=== PATIENT | female | born 1960 | race Two or more races ===

== ENCOUNTER 2024-07-05 18:31 | Emergency (ER) | payer OTHER ==
[~2024-07-05] VITALS: Ht 162.6 cm; Wt 80.2 kg
--- NOTE | 2024-07-05 18:46 | ECG ---
[facility] Test Date: 2024-07-05 Test Time: 18:44:26 Pat Name: JANETH CROW Department: ER Room: Gender: F [employer] Faculty Member: REBECCA : 1960 Requested By: PANTERA PRUETT Order Number: [id number] Reading MD: Feliciano Moreno Measurements Intervals [place] Rate: 103 P: 53 [place]: 169 QRS: -39 QRSD: 85 T: 58 QT: 338 QTc: 443 Interpretive Statements Sinus tachycardia Probable left atrial enlargement Left axis deviation Abnormal R-wave progression, late transition Baseline wander in lead(s) V4 Electronically Signed On 07-07-2024 22:10:34 PST by Feliciano Moreno Please click the below link to view image of tracing.
[2024-07-05] MEDS: NITROGLYCERIN 0.4 MG SL TAB SL ONE (19:10)
--- NOTE | 2024-07-05 19:10 | ED.PDOC ---
HPI Comments Vamsi: HPI: Poor Historian. 64 y/o F, presents to the ED for CC of hyperglycemia. Patient states, that she went to 's walk-in clinic for a medication refill for Metformin and Losartan; was referred to the ED for further evaluation and to rule out DKA. Patient's daughter comments on, medication refill not being granted. Patient's blood sugar read at 290 on the glucometer and her blood pressure read at 222/96 on the right and 197/84 on the left. Patient denies any other symptoms or modifying factors at this time. Initial Vital Signs: Temp : 99.5 BP: 222/96 R 197/84 L HR: 111 RR:18 SpO2: 96 Past Medical History: DM, HTN, UTI Past Surgical History: FX BONES CHEST Social History: Denies smoking, ETOH, or drug use. Medications: Allergies: NKDA REVIEW OF SYSTEMS: CONSTITUTIONAL: Denies acute: fever, diaphoresis, chills, generalized weakness. HEAD: Denies acute: headache, photophobia Eyes: Denies acute: Double vision, vision loss, eye pain, eye discharge. EARS: Denies acute: tinnitus, hearing loss, ear discharge, ear pain, THROAT: Denies acute: sore throat, swelling, difficulty swallowing , pain with swallowing, change in voice. NECK: Denies acute: neck pain, neck swelling, stiff neck. HEART: Denies acute : chest pain, palpitations, LUNGS: Denies acute: SOB, wheezing, cough, hemoptysis ABDOMEN: Denies acute: abdominal pain, Nausea, Vomiting, diarrhea, melena , hematemesis, hematochezia SKIN: Denies acute: rash, redness, lesions, itchiness. EXTREMITIES: Denies acute: calf pain, numbness, tingling, weakness, denies pain in extremity. Denies acute: Low back pain. Neuro: Denies acute: focal neurological deficit, motor or sensory focal neurological deficit, tremors, seizure like activity, confusion, dizziness, change in mental status, loss of bowel or bladder function, cauda equina like symptoms. : Denies acute: dysuria, hematuria, flank pain, increase in urinary frequency. PSYCH: Denies acute: hallucination, suicidal ideation, homicidal ideation. FEMALE: Denies acute: abnormal vaginal bleeding, foul odor, unusual discharge. PHYSICAL EXAM: General: no acute distress, awake and alert. Head: normocephalic, atraumatic. Neck: supple, trachea is midline, no swelling. Throat: Normal phonation. Eyes:, no erythema, no purulent discharge, no proptosis, no icterus. Heart: Slightly tachycardic, no significant murmur appreciated. Lungs: no apparent respiratory distress, Able to speak in full sentences. No wheezing, no rhonchi, no crackles. No stridors Clear to auscultation bilaterally. Abdomen: non tender to palpation, non distended, soft, no guarding, no rebound, + bowel sounds. Neuro: Awake, Alert, oriented to name, self, situation, follows commands GCS=15. Speech is normal. Skin: no petechia, no purpura, no cyanosis, non-pale, not jaundice. Lower extremities: --no - Pitting edema no deformity, no focal swelling, no calf TTP. Makes eye contact. moves all four extremities. Face: no apparent facial droop. Ambulating in the ED independently. ED COURSE: Chief Complaint: Hyperglycemia Time Seen by MD: 17:00 Primary Care Provider: MAITE Castellano Notes: Nurses Notes, Medications, Allergies Allergies: Coded Allergies: NO KNOWN ALLERGIES (Unverified , 07/05/24) Information Source: Patient, Relative (Child) Mode of Arrival: Ambulatory Severity: Mild Timing: Days Duration: Since onset Prehospital treatment: None Cardiac Risk Factors: HTN, Diabetes PE Risk Factors: None History of: None Associated Signs and Symptoms: None Was a procedure done? Was a procedure done?: No CP Differential Dx Differential Diagnosis: N/A Differential Diagnosis: Other (DDX include renal disease, thyroid disease, electrolyte abnormality, increased salt intake, medications non-compliance, undiagnosed HTN, Hypertensive crisis, hypertensive urgency., drug toxicity.) X-Ray, Labs, Meds, VS Vital Signs Date Time Temp Pulse Resp B/P (MAP) Pulse Ox O2 Delivery O2 Flow Rate FiO2 07/05/24 21:39 98.6 93 18 174/83 (113) 97 98.6 07/05/24 20:10 174/88 07/05/24 19:47 97 07/05/24 19:15 118 18 95 Room Air* 0 21 07/05/24 19:15 99.0 115 18 135/88 (104) 96 99.0 07/05/24 19:10 197/84 07/05/24 18:37 99.5 111 18 222/96 (138) 96 197/84 (121) Lab Test 07/05/24 22:21 07/05/24 21:44 07/05/24 21:04 07/05/24 19:26 Range/Units Troponin I High Sensitivity Pending < 3 L < 3 L </=34 ng/L POC Glucose 287 H 70-106 mg/dl Lactic Acid Level 1.6 2.8 *H 0.4-2.0 mmol/L White Blood Count 10.4 4.4-10.8 10^3/uL Red Blood Count 5.40 H 4.0-5.20 10^6/uL Hemoglobin 15.1 12.2-16.2 g/dL Hematocrit 44.2 36.0-46.0 % Mean Corpuscular Volume 81.9 80.0-100.0 fL Mean Corpuscular Hemoglobin 28.0 28.0-32.0 pg Mean Corpuscular Hemoglobin Concent 34.2 32.0-36.0 g/dL Red Cell Distribution Width 12.8 11.8-14.3 % Platelet Count 289 140-450 10^3/uL Mean Platelet Volume 7.7 6.9-10.8 fL Neutrophils (%) (Auto) 74.4 37.0-80.0 % Lymphocytes (%) (Auto) 20.1 10.0-50.0 % Monocytes (%) (Auto) 3.9 0.0-12.0 % Eosinophils (%) (Auto) 1.2 0.0-7.0 % Basophils (%) (Auto) 0.4 0.0-2.0 % Neutrophils # (Auto) 7.8 1.6-8.6 10 ^3/uL Lymphocytes # (Auto) 2.1 0.4-5.4 10 ^3/uL Monocytes # (Auto) 0.4 0-1.3 10 ^3/uL Eosinophils # (Auto) 0.1 0-0.8 10 ^3/uL Basophils # (Auto) 0 0-0.2 10 ^3/uL Nucleated Red Blood Cells 0.1 % Sodium Level 135 L 136-145 mmol/L Potassium Level 4.4 3.5-5.1 mmol/L Chloride Level 100 98-107 mmol/L Carbon Dioxide Level 25 20-31 mmol/L Anion Gap 10 5-15 Blood Urea Nitrogen 17 9-23 mg/dL Creatinine 0.71 0.550-1.02 mg/dL Glomerular Filtration Rate Calc 96 >90 mL/min BUN/Creatinine Ratio 23.9 H 10.0-20.0 Serum Glucose 297 H 74-106 mg/dL Calcium Level 10.3 8.7-10.4 mg/dL Magnesium Level 1.5 L 1.6-2.6 mg/dL Total Bilirubin 0.3 0.2-1.0 mg/dL Aspartate Amino Transferase (AST) 11 L 13-40 U/L Alanine Aminotransferase (ALT) 26 7-40 U/L Alkaline Phosphatase 118 H 46-116 U/L Total Protein 7.5 5.7-8.2 g/dL Albumin 4.7 3.2-4.8 g/dL Test 07/05/24 18:41 07/05/24 18:40 Range/Units Urine Color Light-yellow Yellow Urine Clarity Clear Clear Urine pH 5.0 5.0-9.0 Urine Specific [place] 1.033 1.001-1.035 Urine Protein Negative Negative Urine Ketones Trace Negative Urine Blood Trace H Negative /uL Urine Nitrite Negative Negative Urine Bilirubin Negative Negative Urine Urobilinogen Normal Negative mg/dL Urine Leukocyte Esterase Negative Negative /uL Urine RBC 1 0 - 4 /hpf Urine Microscopic WBC 5 0-5 /HPF Urine Squamous Epithelial Cells Few <5 /hpf Urine Uric Acid Crystals Mod None Seen /hpf Urine Bacteria None seen None Seen /hpf Urine Hyaline Casts Few 0 - 2 /lpf Urine Mucus Few None Seen Urine Glucose 4+ H Normal mg/dL POC Glucose 290 H 70-106 mg/dl Current Medications Medications (Trade) Dose Ordered Sig/Ismael Route Start Time Stop Time Status Last Admin Nitroglycerin (Ntrostat Sublingual) 0.4 mg ONCE ONCE SL 07/05/24 19:00 07/05/24 19:01 DC 07/05/24 19:10 Sodium Chloride 1,000 ml @ 1,000 mls/hr Q1H ONCE IV 07/05/24 19:45 07/05/24 20:44 DC 07/05/24 20:59 Magnesium Sulfate/ Dextrose 100 ml @ 100 mls/hr ONCE ONCE IV 07/05/24 20:45 07/05/24 21:44 DC 07/05/24 21:05 Time of 1ST Reevaluation: 17:30 Reevaluation 1ST: Unchanged Patient Education/Counseling: Diagnosis, Treatment Family Education/Counseling: Diagnosis, Treatment Comments Patient presented with the above HPI.--- HYPERGLYCEMIA and hypertension ---workup was initiated. patient was found with the above mentioned diagnosis. the following medications were ordered: NITROGLYCERIN SUBLINGUAL, IV FLUIDS and magnesium replace please refer to order lists of meds and tests obtained by myself Dr. Browne. Patient ED course and VS have been stabilized. Patient has been reassessed in the ED and remained in a stable condition. Pertinent incidental findings were discussed with the patient and/or family. Patient/family voices understanding and is agreeable with plan. Patient has been observed in the ED adequate length of time to insure im provement/stability. Escalation of care considered: Consideration of escalation to observation or admission Patient was DISCHARGED home in a stable condition. All the reports of any imaging studies that were ordered by myself were reviewed by myself. Departure 1 Departure Time of Disposition: 19:40 Impression: Primary Impression: Hyperglycemia Additional Impressions: Hypertension Hypomagnesemia Disposition: 01 HOME / SELF CARE / HOMELESS Condition: Stable Additional Instructions: Additional discharge instructions: You MUST follow-up with your primary care/family doctor in 1 to 2 days. If you are unable to see your primary care/family doctor, please return to our emergency room for re-assessment and re-evaluation in 1 to 2 days. Return to the emergency room here in our facility or to the nearest ER [facility] if your symptoms change or worsen. CONSULTATIONS: you MUST Follow-up for consultation as soon as possible with: -endocrinology and cardiology in 1-2 days. Please call for appointment. You MUST call the consultants office yourself to make an appointment. You may need to arrange that through your insurance and/or your primary/family doctor. If you are unable to see the consumer services consultant in 1 to 2 days, you must return to our emergency room (or any other ER of your choice) for re-assessment and re- evaluation. Adequate fluid hydration. Monitoring blood pressure at home at least 3 times a day. Monitoring blood sugar at home at least 3 times a day. Discharged With: Self Critical Care Note Critical Care Time?: No Heart Score Heart Score: Heart Score Response (Comments) Value History N/A 0 EKG N/A 0 Age N/A 0 Risk Factors N/A 0 Troponin N/A 0 Total 0 I personally scribed for PANTERA BROWNE DO ([email or web address]) on 07/05/24 at 19:10. Electronically submitted by Christy Conde ([email or web address]). I personally scribed for PANTERA BROWNE DO ([email or web address]) on 07/05/24 at 19:55. Electronically submitted by Christy Conde ([email or web address]). I personally scribed for PANTERA BROWNE DO ([email or web address]) on 07/05/24 at 19:56. Electronically submitted by Christy Conde ([email or web address]). PANTERA BROWNE DO Jul 05, 2024 19:10
[2024-07-05 19:15] VITALS: PULSE 118; RESP 18; O2SAT 95
[2024-07-05 20:01] LABS: Basophils # (auto) 0 10 ^3/uL (0-0.2); Basophils % (auto) 0.4 % (0.0-2.0); Eosinophils # (auto) 0.1 10 ^3/uL (0-0.8); Eosinophils % (auto) 1.2 % (0.0-7.0); Hematocrit 44.2 % (36.0-46.0); Hemoglobin 15.1 g/dL (12.2-16.2); Lymphocytes # (auto) 2.1 10 ^3/uL (0.4-5.4); Lymphocytes % (auto) 20.1 % (10.0-50.0); Mean Corpuscular Hgb Conc. 34.2 g/dL (32.0-36.0); Mean Corpuscular Volume 81.9 fL (80.0-100.0); Monocytes # (auto) 0.4 10 ^3/uL (0-1.3); Monocytes % (auto) 3.9 % (0.0-12.0); Neutrophils # (auto) 7.8 10 ^3/uL (1.6-8.6); Neutrophils % (auto) 74.4 % (37.0-80.0); Nucleated Red Blood Cells % 0.1 %; Platelet Count (auto) 289 10^3/uL (140-450); Red Cell Distribution Width 12.8 % (11.8-14.3); White Blood Cell 10.4 10^3/uL (4.4-10.8)
[2024-07-05 20:27] LABS: Alanine Aminotransferase 26 U/L (7-40); Albumin 4.7 g/dL (3.2-4.8); Anion Gap 10 (5-15); BUN/Creatinine Ratio 23.9 (10.0-20.0); Blood Urea Nitrogen 17 mg/dL (9-23); Calcium 10.3 mg/dL (8.7-10.4); Carbon Dioxide 25 mmol/L (20-31); Chloride 100 mmol/L (98-107); Potassium 4.4 mmol/L (3.5-5.1)
[2024-07-05 20:28] LABS: Alkaline Phosphatase 118 U/L (46-116); Aspartate Aminotransferase 11 U/L (13-40); Bilirubin, Total 0.3 mg/dL (0.2-1.0); Glucose 297 mg/dL (74-106); Magnesium 1.5 mg/dL (1.6-2.6); Sodium 135 mmol/L (136-145); Total Protein 7.5 g/dL (5.7-8.2)
[2024-07-05 20:32] LABS: Lactic Acid w/Reflex 2.8 mmol/L (0.4-2.0)
[2024-07-05] MEDS: SODIUM CHLORIDE 0.9% 1,000 ML IV ONE (20:59)
[2024-07-05] MEDS: MAGNESIUM SULFATE 1GM/100ML 100 ML IV ONE (21:05)
[2024-07-05 21:21] LABS: Urine Bacteria None Seen /hpf (None Seen)
[2024-07-05 21:39] VITALS: BP 174/83; PULSE 93; RESP 18; TEMP 98.6; O2SAT 97
[2024-07-05 22:03] LABS: Urine Blood TRACE /uL (Negative); Urine Clarity Clear (Clear); Urine Color Light-Yellow (Yellow); Urine Hyaline Cast FEW /lpf (0 - 2); Urine Mucus FEW (None Seen); Urine Protein, UAD Negative (Negative); Urine Specific Gravity 1.033 (1.001-1.035); Urine Squamous Epithelial Cell FEW /hpf (<5); Urine Urobilinogen Normal (Negative); Urine WBC 5 /HPF (0-5)
--- NOTE | 2024-07-07 10:20 | ECG ---
[facility] Test Date: 2024-07-05 Test Time: 19:47:24 Pat Name: JANETH CROW Department: ED Room: Gender: F Clin Application Specialist: KELLY : 1960 Requested By: PANTERA PRUETT Order Number: [id number] Reading MD: Feliciano Moreno Measurements Intervals [place] Rate: 97 P: 52 TN: 152 QRS: -53 QRSD: 78 T: 43 QT: 343 QTc: 436 Interpretive Statements Sinus rhythm Left anterior fascicular block RSR' in V1 or V2, right VCD or RVH Electronically Signed On 07-07-2024 22:11:52 PST by Feliciano Moreno Please click the below link to view image of tracing.
== END 2024-07-05 23:02 | disposition home or self-care (01) ==
LOC: ER 18:36
DX: E11.65 Type 2 diabetes mellitus with hyperglycemia (principal); E83.42 Hypomagnesemia; I10 Essential (primary) hypertension
CPT/HCPCS: 36415; 80053; 81001; 82962; 83605; 83735; 84484; 85025; 93005; 96365; 99284; J3475; J7030